=== PATIENT | female | born 1990 | race Two or more races ===

== ENCOUNTER 2018-04-03 14:53 | Emergency (ER) | payer MEDICAID ==
[~2018-04-03] VITALS: Ht 165.1 cm; Wt 113.4 kg
[2018-04-03 16:06] VITALS: BP 140/85
[2018-04-03] MEDS ORDERED: IBUPROFEN 800 MG TAB PO ONE (16:45)
== END 2018-04-03 17:20 | disposition home or self-care (01) ==
LOC: ER 15:15
DX: S52.132A Displaced fracture of neck of left radius, initial encounter for closed fracture (principal); W01.0XXA Fall on same level from slipping, tripping and stumbling without subsequent striking against object, initial encounter; Y93.89 Activity, other specified; Y99.8 Other external cause status; Y92.89 Other specified places as the place of occurrence of the external cause
CPT/HCPCS: 29105; 73080; 73090

== ENCOUNTER 2018-08-12 07:38 | Emergency (ER) | payer SELFPAY ==
[2018-08-12 07:38] VITALS: BP 142/80
== END 2018-08-12 08:05 | disposition left against medical advice (07) ==
LOC: EDBD 07:38 → ER 07:38
DX: R45.851 Suicidal ideations (principal); Z53.21 Procedure and treatment not carried out due to patient leaving prior to being seen by health care provider